=== PATIENT | male | born 1960 | race Caucasian/White ===

== ENCOUNTER 2019-06-26 11:53 | Day surgery (SDC) | payer OTHER ==
[~2019-06-26 11:53] MED LIST: Dexamethasone 20 MG/5 ML VIAL ONE; Glycopyrrolate 0.2 MG/ML 5 ML SYRINGE ONE; Lidocaine 1% PF 5 ML VIAL ONE; Ondansetron PF 4 MG/2 ML Vial ONE; PROPOFOL 200 MG/20 ML VIAL ONE; Rocuronium Bromide 10 MG/ML (10ML VIAL) ONE
[2019-06-26] MEDS ORDERED: ceFAZolin Sodium (SDC) 2 GM/100 ML BAG ONE (12:55)
[2019-06-26] MEDS ORDERED: Ketorolac Tromethamine 30 MG/ML VIAL ONE (12:55)
[2019-06-26] MEDS ORDERED: Fentanyl 100 MCG/2 ML VIAL ONE (12:59)
[2019-06-26] MEDS ORDERED: Bupivacaine/Epinephrine 0.25% 30 ML VIAL ONE (13:05)
--- NOTE | 2019-06-26 23:01 | EKG ---
Test Reason : PREOP Blood Pressure : / mmHG Vent. Rate : 054 BPM Atrial Rate : 054 BPM P-R Int : 190 ms QRS Dur : 110 ms QT Int : 424 ms P-R-T Axes : 062 -51 019 degrees QTc Int : 402 ms Sinus bradycardia Left anterior fascicular block Minimal voltage criteria for LVH, may be normal variant Abnormal ECG No previous ECGs available Confirmed by Ifeoma TORRES ([id number]) on 06/26/2019 11:00:38 PM Referred By: MARLENE Confirmed By:Ifeoma TORRES
--- NOTE | 2019-06-27 10:21 | OP ---
DATE OF PROCEDURE: 06/26/2019 PREOPERATIVE DIAGNOSIS: Right inguinal hernia. POSTOPERATIVE DIAGNOSIS: Right inguinal hernia, with findings of a right femoral hernia. OPERATION PERFORMED: Robotic repair of right femoral hernia. ANESTHESIA: General endotracheal. INDICATIONS: The patient is a 59-year-old white male. He presented with obvious right inguinal hernia. He was taken to the operating room at this time for repair. DESCRIPTION OF OPERATION: Informed consent was obtained. The patient was taken to the operating room, where general endotracheal anesthesia was obtained with the patient in supine position. Bland catheter placed, abdomen was prepped with ChloraPrep and draped in sterile fashion. Local anesthetic was infiltrated and a 12 mm supraumbilical incision was created through which a Veress needle was passed in the peritoneal cavity and pneumoperitoneum was established using carbon dioxide up to pressure of 15 mmHg. A 12 mm trocar port was passed through the same incision and laparoscopic camera was passed through this port. Under direct vision, 2 additional 8 mm robotic ports were placed on either side of midline at the supraumbilical level. The robot was docked to the ports and the camera and operation were continued from the robotic console. Investigation revealed an obvious right inguinal hernia. This appeared to be more medial than typical. A transverse peritoneal incision was created from the median umbilical ligament laterally. Preperitoneal dissection was carried out extending inferiorly. Medially, the dissection exposed the pubic tubercle and Nitin ligament. Laterally, the iliopubic tract was dissected. In the center of the wound, the hernia defect was clearly medial to the epigastric vessels, but as I began to mobilize the hernia contents, this appeared to be below the inguinal ligament rather than above it and this therefore appeared to be a femoral hernia rather than a direct inguinal hernia. The hernia contents were fully dissected. There was a large volume of preperitoneal fatty tissue within the hernia. It was immediately adjacent to Coopers ligament. The hernia defect was fully dissected. The peritoneum was widely dissected off the cord structures and the vas deferens. A large 3DMax mesh patch was obtained and placed in the preperitoneal space. It was secured in place with 3 interrupted sutures of 3-0 Vicryl, placing them to the pubic tubercle significantly medial to the defect, the anterior abdominal wall just over the defect in the anterior abdominal wall further lateral to the epigastric vessels. The peritoneum was then closed with a running suture of 3-0 STRATAFIX. There had been no significant blood loss during the course of the operation. The fascial defect at the 12 mm port site was closed with 0 Vicryl suture using a GraNee needle. All ports and instruments were removed under direct vision. Pneumoperitoneum was carefully evacuated. A 0.25% Marcaine with epinephrine was infiltrated at each port site. Skin edges approximated with 4-0 Monocryl subcuticular suture and Dermabond was placed externally. The patient's bladder was filled retrograde with 200 mL of saline before the Bland was removed or a postoperative voiding trial. There were no complications. Blood loss was negligible. The patient tolerated the procedure well and was taken to recovery room in stable condition. Job ID: [id number]
== END 2019-06-26 21:05 | disposition home or self-care (01) ==
LOC: SDC 11:53
PROVIDERS: ATTEND Specialist
PROC: 0YU74JZ Supplement Right Femoral Region with Synthetic Substitute, Percutaneous Endoscopic Approach (ICD-10-PCS; principal; 2019-06-26)
DX: K41.90 Unilateral femoral hernia, without obstruction or gangrene, not specified as recurrent (principal); J45.909 Unspecified asthma, uncomplicated; F17.210 Nicotine dependence, cigarettes, uncomplicated
CPT/HCPCS: 93005; 93010; C1781; J0131; J0690; J1885; J3010

== ENCOUNTER 2023-09-06 11:24 | Outpatient (CLI) | payer BC | END 2023-09-06 11:25 | disposition home or self-care (01) | LOC: SCSMRI 11:24 | PROVIDERS: ATTEND Family Medicine | DX: M47.22 Other spondylosis with radiculopathy, cervical region (principal); M50.123 Cervical disc disorder at C6-C7 level with radiculopathy; M48.02 Spinal stenosis, cervical region; G89.4 Chronic pain syndrome | CPT/HCPCS: 72141 ==